=== PATIENT | female | born 1935 ===

== ENCOUNTER 2016-08-26 09:06 | Inpatient (IN) | payer MEDICARE, BC ==
[~2016-08-26 09:06] MED LIST: CELEBREX100 MG PO; CITRACAL SOFT1 EACH PO; COZAAR50 M1 PO; LORTAB 5/500 TA1 TAB PO; NORCO 5/3251 TAB PO; PAXIL20 M1 PO; SYNTHROID100 MC1 PO; ULTRAM50 M1 PO; ZOCOR40 M1 PO; [UNRECOGNIZED DRUG - REMARK]
[2016-08-26] MEDS ORDERED: MECLIZINE HCL25 M3 PO (09:37)
[2016-08-26 10:40] LABS: BASO % 0.6 % (0-2); BASO ABSOLUTE COUNT 0.1 tho/cmm (0.0-0.2); EOS % 1.8 % (0-7); EOSINOPHIL ABSOLUTE COUNT 0.2 tho/cmm (0.0-0.7); HCT-HEMATOCRIT 45.2 % (34.0-49.0); HGB-HEMOGLOBIN 15.2 gm/dl (12.0-15.5); IMMATURE GRANULOCYTES ABSOLUTE 0.09 tho/cmm (0-0.03); IMMATURE GRANULOCYTES PERCENT 0.8 % (0-0.3); LYMPH % 10.3 % (20-45); LYMPH ABSOLUTE COUNT 1.2 tho/cmm (0.8-4.5); MCH (MEAN CORPUSCULAR HGB) 28.5 pg (28.0-32.0); MCHC MEAN CORPUSCULAR HGB CONC 33.6 % (32.0-36.0); MCV (MEAN CELL VOLUME) 84.6 fl (82.0-96.0); MEAN PLATELET VOLUME 9.5 cmc (9.4-12.4); MONO % 8.6 % (0-12); NEUTROPHILS % 77.9 % (40-80); PLATELET COUNT 388 tho/cmm (150-450); RED BLOOD COUNT 5.34 mil/cmm (4.00-5.20); RED CELL DISTRIBUTION WIDTH 12.7 % (12.4-16.4); WHITE BLOOD COUNT 11.5 tho/cmm (4.0-10.0)
[2016-08-26 10:56] LABS: ALB/GLOB RATIO 0.6 (0.8-2.0); ALBUMIN 2.8 g/dl (3.5-5.0); ALKALINE PHOSPHATASE 69 U/L (33-138); ALT/SGPT 14 U/L (12-78); ANION GAP 11 mmol/L (0-20); AST/SGOT 13 U/L (10-40); BILIRUBIN,TOTAL 0.8 mg/dl (0-1.5); BLOOD UREA NITROGEN 16 mg/dl (6-24); CALCIUM 8.8 mg/dl (8.5-10.5); CARBON DIOXIDE-VENOUS 29 mmol/L (22-32); CHLORIDE 103 mmol/l (96-110); CREATININE 0.88 mg/dl (0.50-1.10); GLUCOSE 112 mg/dL (70-110); MAGNESIUM 2.3 mg/dl (1.8-2.6); POTASSIUM 4.4 mmol/L (3.7-5.1); SODIUM 139 mmol/L (135-145); eGFR VALUE FOR BLACK 72 mL/Min
[2016-08-26 12:18] LABS: TSH-THYROID STIMULATING HORM. 2.65 uIU/ml (0.40-3.80)
[2016-08-26 12:33] LABS: PROCALCITONIN <0.05 ng/ml (0.05-0.09)
[2016-08-27 05:19] LABS: ANION GAP 9 mmol/L (0-20); BLOOD UREA NITROGEN 13 mg/dl (6-24); CALCIUM 8.5 mg/dl (8.5-10.5); CARBON DIOXIDE-VENOUS 27 mmol/L (22-32); CHLORIDE 108 mmol/l (96-110); CREATININE 0.71 mg/dl (0.50-1.10); GLUCOSE 114 mg/dL (70-110); SODIUM 140 mmol/L (135-145); eGFR VALUE FOR BLACK >90 mL/Min
[2016-08-27 06:18] LABS: BASO % 0.5 % (0-2); BASO ABSOLUTE COUNT 0.1 tho/cmm (0.0-0.2); EOS % 2.4 % (0-7); EOSINOPHIL ABSOLUTE COUNT 0.3 tho/cmm (0.0-0.7); HCT-HEMATOCRIT 41.1 % (34.0-49.0); HGB-HEMOGLOBIN 13.3 gm/dl (12.0-15.5); IMMATURE GRANULOCYTES ABSOLUTE 0.11 tho/cmm (0-0.03); LYMPH % 16.8 % (20-45); LYMPH ABSOLUTE COUNT 1.9 tho/cmm (0.8-4.5); MCH (MEAN CORPUSCULAR HGB) 28.2 pg (28.0-32.0); MCHC MEAN CORPUSCULAR HGB CONC 32.4 % (32.0-36.0); MCV (MEAN CELL VOLUME) 87.3 fl (82.0-96.0); MEAN PLATELET VOLUME 10.2 cmc (9.4-12.4); MONO % 8.7 % (0-12); NEUTROPHILS % 70.6 % (40-80); PLATELET COUNT 409 tho/cmm (150-450); RED BLOOD COUNT 4.71 mil/cmm (4.00-5.20); RED CELL DISTRIBUTION WIDTH 12.8 % (12.4-16.4); WHITE BLOOD COUNT 11.3 tho/cmm (4.0-10.0)
[2016-08-31] MEDS ORDERED: ELIQUIS5 M1 PO (09:37)
[2016-08-31] MEDS ORDERED: LOPRESSOR50 M1 PO (09:38)
[2016-08-31] MEDS ORDERED: AMIODARONE HCL200 M1 PO ×2 (09:38)
[2016-08-31] MEDS ORDERED: ULTRAM50 M1 PO (09:41)
[2016-08-31] MEDS ORDERED: ACETAMINOPHEN500 M4 PO (09:41)
[2016-08-31] MEDS ORDERED: ZITHROMAX500 M2 PO (09:44)
== END 2016-08-31 13:30 | DRG 205 ==
LOC: EDMED 09:06 → EMR2 15:38 → PCUA 17:50
PROVIDERS: Emergency Medicine; ADMIT Internal Medicine
PROC: 05H533Z Insertion of Infusion Device into Right Subclavian Vein, Percutaneous Approach (ICD-10-PCS; principal; 2016-08-28)
PROC: B246ZZ4 Ultrasonography of Right and Left Heart, Transesophageal (ICD-10-PCS; 2016-08-29)
PROC: 3E0T3BZ Introduction of Anesthetic Agent into Peripheral Nerves and Plexi, Percutaneous Approach (ICD-10-PCS; 2016-08-29)
DX: S22.31XA Fracture of one rib, right side, initial encounter for closed fracture (principal); J18.9 Pneumonia, unspecified organism; Q21.1 Atrial septal defect; I51.3 Intracardiac thrombosis, not elsewhere classified; I48.91 Unspecified atrial fibrillation; R41.0 Disorientation, unspecified; T40.605A Adverse effect of unspecified narcotics, initial encounter; R42 Dizziness and giddiness; W19.XXXA Unspecified fall, initial encounter; I10 Essential (primary) hypertension; E78.5 Hyperlipidemia, unspecified; E03.9 Hypothyroidism, unspecified; Y92.012 Bathroom of single-family (private) house as the place of occurrence of the external cause; M85.80 Other specified disorders of bone density and structure, unspecified site; I70.90 Unspecified atherosclerosis
CPT/HCPCS: C1751; C8925; C8929; J0456; J0696; J1650; J2270; J2405; J2795; J3010; J7030; J7050; Q9967